=== PATIENT | male | born 1980 | race African-American/Black ===

== ENCOUNTER 2016-09-25 18:34 | Emergency (ER) | payer OTHER ==
[2016-09-25 18:52] VITALS: BP 124/80; PULSE 85; TEMP 98; BMI 24.4
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
[2016-09-25] MEDS ORDERED: IBUPROFEN 400 MG TABLET (FP) PO ONE (20:48)
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
== END 2016-09-25 21:01 | disposition home or self-care (01) ==
LOC: JERFT 18:34
CPT/HCPCS: 99281-25